=== PATIENT | male | born 1990 | race Hispanic/Latino ===

== ENCOUNTER 2016-10-12 00:49 | Observation (INO) | payer MEDICAID ==
[2016-10-12] MEDS ORDERED: DiphenhydrAMINE 50 mg/ml Inj IM STA (01:13)
[2016-10-12 01:48] LABS: BASO % 0.3 % (0.0-2.0); EOS % 0.3 % (0.0-4.0); HEMOGLOBIN 14.4 g/dL (12.0-18.0); LYMPH # 0.8 K/uL (1.0-4.3); LYMPH % 4.8 % (20.0-40.0); MEAN CELL VOLUME 88.8 fl (80.0-94.0); MEAN CORPUSCULAR HEMOGLOBIN 29.1 pg (27.0-31.0); MEAN CORPUSCULAR HGB CONC 32.7 g/dL (33.0-37.0); MEAN PLATELET VOLUME 8.1 fl (7.2-11.7); MONO # 1.6 K/uL (0.0-0.8); MONO % 9.8 % (0.0-10.0); NEUT # 13.8 K/uL (1.8-7.0); NEUT % 84.8 % (50.0-75.0); PLATELET COUNT 222 K/uL (130-400); RBC 4.97 Mil/uL (4.40-5.90); RED CELL DISTRIBUTION WIDTH 13.1 % (11.5-14.5); WHITE BLOOD COUNT 16.3 K/uL (4.8-10.8)
[2016-10-12 01:58] LABS: ALB/GLOB RATIO 1.9 (1.0-2.1); ALBUMIN 4.5 g/dL (3.5-5.0); ALT/SGPT 56 U/L (21-72); AST/SGOT 49 U/L (17-59); BLOOD UREA NITROGEN 19 mg/dl (9-20); CALCIUM 9.4 mg/dL (8.4-10.2); GFR AFRICAN-AMERICAN > 60; GFR NON-AFRICAN AMERICAN > 60
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
--- NOTE | 2016-10-12 04:49 | CT ---
EXAM: CT Head Without Intravenous Contrast CLINICAL HISTORY: 26 years old, male; Injury or trauma; Fall; Initial encounter; Blunt trauma (contusions or hematomas); Additional info: Head injury TECHNIQUE: Axial computed tomography images of the head/brain without intravenous contrast. This CT exam was performed using one or more of the following dose reduction techniques: automated exposure control, adjustment of the mA and/or kV according to patient size, and/or use of iterative reconstruction technique. Coronal and sagittal reformatted images were created and reviewed. COMPARISON: No relevant prior studies available. FINDINGS: Brain: No intracranial hemorrhage. No mass. No edema. Ventricles: No hydrocephalus. Bones/joints: No calvarial fracture. Soft tissues: Scalp swelling. Mastoid air cells: No mastoid effusion. IMPRESSION: 1. No intracranial hemorrhage. 2. See facial bone CT report for additional details. 3. Incidental/non-acute findings are described above.
[2016-10-12 04:51] LABS: BARBITURATES, UR NEGATIVE (NEGATIVE); BENZODIAZEPINES, UR NEGATIVE (NEGATIVE); OPIATES, UR NEGATIVE (NEGATIVE); PHENCYCLIDINE, UR NEGATIVE (NEGATIVE)
--- NOTE | 2016-10-12 04:51 | CT ---
EXAM: CT Maxillofacial Without Intravenous Contrast CLINICAL HISTORY: 26 years old, male; Injury or trauma; Fall; Initial encounter; Blunt trauma (contusions or hematomas); Cheek bone; Right; Additional info: Facial trauma TECHNIQUE: Axial computed tomography images of the face without intravenous contrast. This CT exam was performed using one or more of the following dose reduction techniques: automated exposure control, adjustment of the mA and/or kV according to patient size, and/or use of iterative reconstruction technique. Coronal and sagittal reformatted images were created and reviewed. COMPARISON: No relevant prior studies available. FINDINGS: Bones/joints: No acute fracture. Soft tissues: Facial soft tissue swelling. Orbits: Unremarkable as visualized. Sinuses: Unremarkable. No air-fluid levels. IMPRESSION: 1. No fracture. 2. Incidental/non-acute findings are described above.
[2016-10-12 05:12] LABS: LYMPHOCYTE 5 % (20-50); MONOCYTE 2 % (0-10); NEUTROPHIL 93 % (42-75); PLATELET ESTIMATE NORMAL (NORMAL); TOTAL CELLS COUNTED 100
--- NOTE | 2016-10-12 07:07 | ED PDOC ---
- Laboratory Results Result Diagrams: 10/12/16 16:20 10/12/16 01:45 - ECG O2 Sat by Pulse Oximetry: 100 (RA) Pulse Ox Interpretation: Normal Medical Decision Making Medical Decision Makinam endorsed pending sobriety and crisis eval 930am- remains somnolent, SPO2 97% RA HR 80. CT report brain/maxfacial reviewed. Pupils sluggish 3mm b/l symmetric. 11am- arousable but uncooperative. SPO2 98% RA 1:10pm- awake and communicative but uncooperative with nonsensical speech. Crisis eval initiated and likely screen [facility]. [address] Samuels pending [facility] screen. Disposition Counseled Patient/Family Regarding: Studies Performed - Clinical Impression Clinical Impression: Psychosis - POA Present On Arrival: None - Disposition Disposition: Transfer of Care Disposition Time: 17:00 Condition: FAIR Patient Signed Over To: Shawn Samuels
[2016-10-12 15:31] LABS: URINE BILIRUBIN NEGATIVE (NEGATIVE); URINE BLOOD SMALL (NEGATIVE); URINE CLARITY CLEAR (Clear); URINE COLOR YELLOW (YELLOW); URINE GLUCOSE (UA) NEG (Normal); URINE LEUKOCYTE ESTERASE NEG Leu/uL (Negative); URINE NITRATE NEGATIVE (NEGATIVE); URINE PROTEIN NEGATIVE (NEGATIVE); URINE UROBILINOGEN 0.2-1.0 mg/dL (0.2-1.0)
[2016-10-12 17:15] LABS: BASO % 0.5 % (0.0-2.0); EOS # 0.2 K/uL (0.0-0.7); EOS % 1.6 % (0.0-4.0); HEMOGLOBIN 14.8 g/dL (12.0-18.0); LYMPH # 1.5 K/uL (1.0-4.3); LYMPH % 15.7 % (20.0-40.0); MEAN CELL VOLUME 89.1 fl (80.0-94.0); MEAN CORPUSCULAR HEMOGLOBIN 30.2 pg (27.0-31.0); MEAN CORPUSCULAR HGB CONC 33.8 g/dL (33.0-37.0); MEAN PLATELET VOLUME 8.6 fl (7.2-11.7); MONO % 9.9 % (0.0-10.0); NEUT # 6.9 K/uL (1.8-7.0); NEUT % 72.3 % (50.0-75.0); RBC 4.91 Mil/uL (4.40-5.90); RED CELL DISTRIBUTION WIDTH 13.1 % (11.5-14.5); WHITE BLOOD COUNT 9.6 K/uL (4.8-10.8)
--- NOTE | 2016-10-12 18:20 | ED PDOC ---
- Laboratory Results Result Diagrams: 10/12/16 16:20 10/12/16 01:45 - ECG O2 Sat by Pulse Oximetry: 100 (RA) Medical Decision Making Medical Decision Makin:00 Pt signed out to me by Dr. Maria Esther BARRETT DO. Pending [facility] screen and repeat CBC. Documented by Renaldo Duarte, acting as a scribe for Shawn Samuels MD. All medical record entries made by the Scribe were at my direction and personally dictated by me. I have reviewed the chart and agree that the record accurately reflects my personal performance of the history, physical exam, medical decision making, and the department course for this patient. I have also personally directed, reviewed, and agree with the discharge instructions and disposition. Disposition Doctor Will See Patient In The: Office Counseled Patient/Family Regarding: Studies Performed, Diagnosis - Clinical Impression Clinical Impression: Psychosis - POA Present On Arrival: None - Disposition Disposition: Transfer of Care Disposition Time: 23:55 Condition: FAIR Patient Signed Over To: Rahul Mckeon Handoff Comments: pending [facility] bed assignment
--- NOTE | 2016-10-13 01:12 | ED PDOC ---
- Laboratory Results Result Diagrams: 10/12/16 16:20 10/12/16 01:45 - ECG O2 Sat by Pulse Oximetry: 98 (RA) Pulse Ox Interpretation: Normal - Other Rad Chest X-Ray X-Ray: Interpreted by Me, Viewed By Me X-Ray Interpretation: Normal, no acute disease. Medical Decision Making Medical Decision Making: Time: 00:00 --Patient has been signed out by Shawn Samuels MD to nd, and is pending [facility] [place] bed availability. Scribe Attestation: Documented by Marina Christiansen, acting as a scribe for Rahul Mckeon MD Provider Scribe Attestation: All medical record entries made by the Scribe were at my direction and personally dictated by me. I have reviewed the chart and agree that the record accurately reflects my personal performance of the history, physical exam, medical decision making, and the department course for this patient. I have also personally directed, reviewed, and agree with the discharge instructions and disposition. Disposition - Clinical Impression Clinical Impression: Psychosis - POA Present On Arrival: None - Disposition Disposition: Transfer of Care Disposition Time: 07:00 Condition: FAIR Patient Signed Over To: Radha Marley (Pending [facility] [place] [facility] bed availability) ED OBSERVATION Date of observation admission: 10/12/16 Time of observation admission: 01:40 - Progress Note Progress Note: 10/13/16 Time: 01:30 --Patient is resting comfortably. Vital signs are stable. 10/13/16 Time: 03:00 --Patient is resting comfortably. Vital signs are stable. 10/13/16 Time: 04:30 --Patient continues to rest comfortably. Vital signs stable. 10/13/16 Time: 06:00 --Patient is resting comfortably. Vital signs are stable. 10/13/16 Time: 07:00 --Patient is signed out by me to Radha Marley MD, pending [facility] [place] bed availability
--- NOTE | 2016-10-13 08:00 | RAD ---
HISTORY: Medical clearance. COMPARISON: No prior. FINDINGS: LUNGS: No active pulmonary disease. PLEURA: No significant pleural effusion identified, no pneumothorax apparent. CARDIOVASCULAR: Normal. OSSEOUS STRUCTURES: No significant abnormalities. VISUALIZED UPPER ABDOMEN: Normal. OTHER FINDINGS: None. IMPRESSION: No active disease.
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
--- NOTE | 2016-10-13 13:25 | ED PDOC ---
- Laboratory Results Result Diagrams: 10/12/16 16:20 10/12/16 01:45 - ECG O2 Sat by Pulse Oximetry: 100 (RA) Pulse Ox Interpretation: Normal Medical Decision Making Medical Decision Makin:1 continued. Pt is stable, pending bed availability at [facility] [place]. pt resting comfortably [address] hernandez pending [facility] [place] Scribe Attestation: Documented by Madelin Haynes, acting as a scribe for Radha Marley MD. Provider Scribe Attestation: All medical record entries made by the Scribe were at my direction and personally dictated by me. I have reviewed the chart and agree that the record accurately reflects my personal performance of the history, physical exam, medical decision making, and the department course for this patient. I have also personally directed, reviewed, and agree with the discharge instructions and disposition. Disposition - Clinical Impression Clinical Impression: Psychosis - POA Present On Arrival: None - Disposition Disposition: Transfer of Care Disposition Time: 17:00 Condition: FAIR Patient Signed Over To: Marianne Hernandez Handoff Comments: pending bed availability at [facility] [place]
--- NOTE | 2016-10-13 17:18 | ED PDOC ---
- Laboratory Results Result Diagrams: 10/12/16 16:20 10/12/16 01:45 - ECG O2 Sat by Pulse Oximetry: 100 (RA) - Progress ED Course And Treament: 5p Rec'd endorsement from Dr Marley. Pt pending bed at [facility] [place] for involuntary psych admission. Stable at this time. Currently on 1:1 observation. Psychiatry consult appreciated. 630p Bed available for transfer. Stable at transfer. Disposition - Clinical Impression Clinical Impression: Psychosis - POA Present On Arrival: None - Disposition Disposition: Other Institution ([facility] [place]) Disposition Time: 17:00 Condition: FAIR
[2016-10-13 19:49] VITALS: BP 125/80; PULSE 69; RESP 16; TEMP 98.1; O2SAT 100
== END 2016-10-13 20:33 ==
LOC: H.ER 00:49 → H.EROBSV 01:41
PROVIDERS: ADMIT Emergency Medicine; ATTEND Emergency Medicine
DX: F31.10 Bipolar disorder, current episode manic without psychotic features, unspecified (principal); S09.90XA Unspecified injury of head, initial encounter; Y04.0XXA Assault by unarmed brawl or fight, initial encounter; Z78.1 Physical restraint status